=== PATIENT | female | born 1950 | race Hispanic/Latino ===

== ENCOUNTER 2017-10-22 18:02 | Emergency (ER) | payer BC, MEDICARE ==
[~2017-10-22] VITALS: Ht 167.6 cm; Wt 82.1 kg
[2017-10-22] MEDS ORDERED: VENTOLIN HFA18 GM INH (19:06)
[2017-10-22] MEDS ORDERED: DOCUSATE SODIU250 MG PO (19:09)
[2017-10-22] MEDS ORDERED: ASTEPRO205.5 MCG/ NAS (19:09)
[2017-10-22] MEDS ORDERED: FLONASE ALLERG9.9 ML NAS (19:10)
[2017-10-22] MEDS ORDERED: ESZOPICLONE2 MG PO (19:10)
[2017-10-22] MEDS ORDERED: PATANOL5 ML OD (19:11)
[2017-10-22] MEDS ORDERED: METHSCOPOLAMIN2.5 MG PO (19:11)
[2017-10-22] MEDS ORDERED: IBUPROFEN800 MG PO (19:11)
[2017-10-22] MEDS ORDERED: QVAR8.7 GM INH (19:12)
[2017-10-22] MEDS ORDERED: LIOTHYRONINE SO5 MCG PO (19:13)
[2017-10-22] MEDS ORDERED: ULTRAM50 MG PO (19:13)
[2017-10-22] MEDS ORDERED: HYDROCHLOROTH12.5 MG PO (19:13)
[2017-10-22] MEDS ORDERED: LEVOXYL50 MCG PO (19:13)
[2017-10-22] MEDS ORDERED: OMEPRAZOLE20 MG PO (19:14)
[2017-10-22] MEDS ORDERED: WELLBUTRIN XL150 MG PO (19:15)
[2017-10-22] MEDS ORDERED: GABAPENTIN100 MG PO (19:15)
[2017-10-22] MEDS ORDERED: VITAMIN D35000 UNI1 PO (19:15)
[2017-10-22] MEDS ORDERED: ASPIR 8181 MG PO (19:16)
[2017-10-22] MEDS ORDERED: MOBIC7.5 MG PO (19:16)
== END 2017-10-22 19:25 | disposition home or self-care (01) ==
LOC: ED 18:02
DX: H57.8 Other specified disorders of eye and adnexa (principal); E11.9 Type 2 diabetes mellitus without complications; I10 Essential (primary) hypertension; Z88.1 Allergy status to other antibiotic agents; Z88.5 Allergy status to narcotic agent; Z88.8 Allergy status to other drugs, medicaments and biological substances; Z79.899 Other long term (current) drug therapy; Z79.82 Long term (current) use of aspirin
CPT/HCPCS: 99282